=== PATIENT | male | born 1995 | race Caucasian/White ===

== ENCOUNTER 2017-12-14 15:24 | Emergency (ER) | payer OTHER ==
[~2017-12-14] VITALS: Ht 162.6 cm; Wt 56.1 kg
[2017-12-14 15:32] VITALS: TEMP 36.6; Ht 162.6 cm; Wt 56.1 kg
--- NOTE | 2017-12-14 15:50 | EMERGENCY ROOM VISIT NOTE ---
History Report prepared by Lia: Osiris Landeros Under the Supervision of: Dr. Jonny Travis M.D. 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 Positive hematochezia. Negative SOB, chest pain, back pain, weakness, familial history of small obstructive bowel disease. He describes his pain as discomfort and states the pain is worse on his right side but occasionally travels to his lower left side. The patient states he has been drinking well water and notes it has been smelling off lately. The last time he went camping was over 1 month ago. He currently does not take any blood thinners, or use tobacco or drugs. He notes his mother had part of her small intestine removed due to diverticulitis. Source of History: patient Onset: 4 days captain waiter/waitress Position: abdomen Timing: intermittent Review of Systems See HPI for pertinent positives and negatives. A total of ten systems were reviewed and were otherwise negative. Past Medical & Surgical Medical Problems: (1) Stomach problems (2) Urinary problem in male Family History FH: cancer FHx: diabetes mellitus High blood pressure Social History Smoking Status: Never Smoker Alcohol Use: none Drug Use: none Housing Status: lives with family Current/Historical Medications Scheduled Dicyclomine Hcl (Bentyl), 10 MG PO TID Esomeprazole Magnesium (Nexium), 40 MG PO DAILY Allergies Uncoded Allergies: NKDA (Allergy, Mild, 02/29/08) Physical Exam Vital Signs Date Time Temp Pulse Resp B/P (MAP) Pulse Ox O2 Delivery O2 Flow Rate FiO2 12/14/17 17:28 91 18 102/61 100 12/14/17 16:35 100 12/14/17 16:22 116 21 97/69 100 Room Air 12/14/17 15:32 36.6 84 18 122/76 97 Room Air Physical Exam GENERAL: Awake, alert, well-appearing, NAD HENT: Normocephalic, atraumatic. EYES: Normal conjunctiva. Sclera non-icteric. PERRL. No anisocoria. NECK: Supple. No nuchal rigidity. FROM. No CVA TTP. RESPIRATORY: CTAB, no rhonchi, wheezing, crackles CARDIAC: RRR, no MRG ABDOMEN: Soft, NTND, BS+. Right upper, left upper, and left lower discomfort. No guarding, no rebound. Negative obturators. Negative psoas. : No hemorrhoids, no masses, no fissures. Hem occult negative. No gross blood MSK: No chest wall TTP, no LE edema NEURO: GCS 15, CN 2-12 intact, moves all 4s on command SKIN: No rash or jaundice noted. Medical Decision & Procedures ER Provider Diagnostic Interpretation: Radiology results as stated below per my review and radiologist interpretation: KUB HISTORY: Generalized abdominal pain. COMPARISON: None. FINDINGS: The bowel gas pattern is unremarkable. There are no dilated loops of small bowel to suggest an obstruction. No renal calculi. No ureteral calculi. No pneumoperitoneum or pneumatosis. IMPRESSION: No renal or ureteral stones. Electronically signed by: Reyes Gustafson M.D. 12/14/2017 4:30 PM Laboratory Results 12/14/17 16:26 Red Blood Count 5.80, Mean Corpuscular Volume 83.1, Mean Corpuscular Hemoglobin 30.2, Mean Corpuscular Hemoglobin Concent 36.3, Mean Platelet Volume 9.7, Neutrophils (%) (Auto) 45.5, Lymphocytes (%) (Auto) 46.0, Monocytes (%) (Auto) 6.4, Eosinophils (%) (Auto) 1.5, Basophils (%) (Auto) 0.4, Neutrophils # (Auto) 2.48, Lymphocytes # (Auto) 2.50, Monocytes # (Auto) 0.35, Eosinophils # (Auto) 0.08, Basophils # (Auto) 0.02 12/14/17 16:26 Test 12/14/17 16:00 12/14/17 16:26 Urine Color YELLOW Urine Appearance CLEAR (CLEAR) Urine pH 6.5 (4.5-7.5) Urine Specific [place] 1.027 (1.000-1.030) Urine Protein NEG (NEG) Urine Glucose (UA) NEG (NEG) Urine Ketones NEG (NEG) Urine Occult Blood NEG (NEG) Urine Nitrite NEG (NEG) Urine Bilirubin NEG (NEG) Urine Urobilinogen NEG (NEG) Urine Leukocyte Esterase NEG (NEG) White Blood Count 5.44 K/uL (4.8-10.8) Red Blood Count 5.80 M/uL (4.7-6.1) Hemoglobin 17.5 g/dL (14.0-18.0) Hematocrit 48.2 % (42-52) Mean Corpuscular Volume 83.1 fL (80-100) Mean Corpuscular Hemoglobin 30.2 pg (25-34) Mean Corpuscular Hemoglobin Concent 36.3 g/dl (32-36) Platelet Count 270 K/uL (130-400) Mean Platelet Volume 9.7 fL (7.4-10.4) Neutrophils (%) (Auto) 45.5 % Lymphocytes (%) (Auto) 46.0 % Monocytes (%) (Auto) 6.4 % Eosinophils (%) (Auto) 1.5 % Basophils (%) (Auto) 0.4 % Neutrophils # (Auto) 2.48 K/uL (1.4-6.5) Lymphocytes # (Auto) 2.50 K/uL (1.2-3.4) Monocytes # (Auto) 0.35 K/uL (0.11-0.59) Eosinophils # (Auto) 0.08 K/uL (0-0.5) Basophils # (Auto) 0.02 K/uL (0-0.2) RDW Standard Deviation 37.6 fL (36.4-46.3) RDW Coefficient of Variation 12.6 % (11.5-14.5) Immature Granulocyte % (Auto) 0.2 % Immature Granulocyte # (Auto) 0.01 K/uL (0.00-0.02) Prothrombin Time 11.1 SECONDS (9.0-12.0) Prothromb Time International Ratio 1.1 (0.9-1.1) Activated Partial Thromboplast Time 28.6 SECONDS (21.0-31.0) Partial Thromboplastin Ratio 1.1 Anion Gap 7.0 mmol/L (3-11) Est Creatinine Clear Calc Drug Dose 93.5 ml/min Estimated GFR () 125.0 Estimated GFR (Non- 107.9 BUN/Creatinine Ratio 11.3 (10-20) Calcium Level 9.0 mg/dl (8.5-10.1) Total Bilirubin 0.8 mg/dl (0.2-1) Direct Bilirubin 0.2 mg/dl (0-0.2) Aspartate Amino Transf (AST/SGOT) 17 U/L (15-37) Alanine Aminotransferase (ALT/SGPT) 20 U/L (12-78) Alkaline Phosphatase 60 U/L (45-117) Total Protein 8.2 gm/dl (6.4-8.2) Albumin 4.4 gm/dl (3.4-5.0) Lipase 147 U/L (73-393) Laboratory results reviewed by me Medications Administered Medications (Trade) Dose Ordered Sig/Scotty Route Start Time Stop Time Status Last Admin Dose Admin Sodium Chloride 500 ml @ 999 mls/hr Q31M STAT IV 12/14/17 16:48 12/14/17 17:18 DC 12/14/17 16:56 999 MLS/HR ED Course 1537: The patient was evaluated in room A11. A complete history and physical exam was performed. 1640: I performed a rectal exam at this time. It showed no hemorrhoids, no masses, no fissures. Hem occult negative. No gross blood 1709: I reevaluated the patient. Discussed results and discharge instructions: He verbalized understanding and agreement. The patient is ready for discharge. 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 Positive hematochezia. Negative SOB, chest pain, back pain, weakness, familial history of small obstructive bowel disease. Nursing notes reviewed. Ancillary studies and prior records reviewed. Differential diagnosis: Etiologies such as appendicitis, diverticulitis, PUD, biliary pathology, UTI, pancreatitis, obstruction, mesenteric ischemia, aortic pathology, infections, inflammatory bowel disease, renal colic, diverticulosis, AVM, coagulopathy, colitis, inflammatory bowel disease, malignancy, Radha-Olivares tear, esophagitis , peptic ulcer disease, variceal bleed, gastritis, epistaxis, fissure, hemorrhoids, as well as others were entertained. Patient was seen and evaluated the bedside. Patient has complained of some hematochezia. Patient states that the volume is somewhat increased as it has been on the stool and occasionally when he wipes. Patient denies any trauma. Patient is not taking blood thinning medications. Patient denies any prior history of IBD, trauma, alcohol or tobacco use. Patient did state that he noticed the change in the smell and quality of his well water. No recent antibiotics or travel. Patient did have blood work completed and was given some IV fluids. The patient was intermittently tachycardic but I believe this is due to stress as the patient has never been to the ER to have an IV placed or have a rectal exam completed before. The patient's rectal exam did not show any gross blood, melenic stool, and was Hemoccult negative. Patient did show me some photos which showed that there was some blood in the stool. Patient denies eating any beats, iron supplements, or a lot of red meat. Patient's blood counts were normal. Patient had normal H&H, platelet count, and coagulation studies. Patient's abdominal pain did improve. Given the patient's lack of comorbidities I do not believe that the patient requires a CT scan at this time. Patient was told this may be a self-limiting disease. Patient was unable to give us a stool sample at this time to send him for further study. The patient does have a follow-up with his PCP on Monday and told him that he may need a referral to a lead nuclear medicine technologist for possible endoscopy or colonoscopy. Patient denies any family history of colon cancer. Patient has not had any unintended weight loss. The patient was informed to try to take a PPI and to consider more bland diet. Patient was also given some Bentyl for home. Patient was given strict follow-up, discharge, and return precautions. All questions were answered. Patient was deemed suitable for outpatient follow-up at this time. Patient agreed with the plan of care and was safely discharged home. Medication Reconcilliation Current Medication List: was personally reviewed by me Blood Pressure Screening Patient's blood pressure: Normal blood pressure Blood pressure disposition: Did not require urgent referral Impression Primary Impression: Rectal bleeding Additional Impression: Abdominal pain Scribe Attestation The scribe's documentation has been prepared under my direction and personally reviewed by me in its entirety. I confirm that the note above accurately reflects all work, treatment, procedures, and medical decision making performed by me. Departure Information Dispostion Home / Self-Care Prescriptions Esomeprazole Magnesium (NEXIUM) 40 Mg Cap 40 MG PO DAILY for 30 Days, #30 CAP Prov: Jonny Travis M.D. 12/14/17 Dicyclomine Hcl (BENTYL) 10 Mg Cap 10 MG PO TID for 7 Days, #21 CAP Prov: Jonny Travis M.D. 12/14/17 Referrals No Doctor, Assigned (PCP) John Bailey III, M.D. Forms HOME CARE DOCUMENTATION FORM, IMPORTANT VISIT INFORMATION Patient Instructions Bleeding Rectal, My Cm Pixsta Additional Instructions Please return to the emergency department if you have worsening or recurrent symptoms not amenable to at-home treatment. Please call for a follow-up appointment with her primary care physician. Please take your medications as prescribed. If you have other concerns and/or complaints please feel free to also call your primary care physician's office or return the ED for further evaluation, management, and treatment. To help with your reflux type symptoms please consider smaller more frequent meals. Please do not lay down after eating. Consider avoiding spicy, citrus, peppermint, chocolate. Consider taking a PPI like Nexium 20 mg daily or an antihistamine like Pepcid 20 mg twice daily. You have been examined and treated today on an emergency basis only. This is not a substitute for, or an effort to provide, complete comprehensive medical care. It is impossible to recognize and treat all injuries or illnesses in a single emergency department visit. It is therefore important that you follow up closely with [facility], your PCP, and/or your specialist(s). Call as soon as possible for an appointment. Thank you for your time and consideration. I look forward to speaking with you again soon. Please don't hesitate to call us if you have any questions. Problem Qualifiers Additional Impression: Abdominal pain Abdominal location: generalized Qualified Codes: R10.84 - Generalized abdominal pain
--- NOTE | 2017-12-14 16:31 | DIAGNOSTIC IMAGING REPORT ---
KUB HISTORY: Generalized abdominal pain. COMPARISON: None. FINDINGS: The bowel gas pattern is unremarkable. There are no dilated loops of small bowel to suggest an obstruction. No renal calculi. No ureteral calculi. No pneumoperitoneum or pneumatosis. IMPRESSION: No renal or ureteral stones. Electronically signed by: Reyes Gustafson M.D. 12/14/2017 4:30 PM Dictated Date/Time: 12/14/2017 4:29 PM
[2017-12-14 16:35] LABS: BASO % 0.4 %; BASO ABS # 0.02 K/uL (0-0.2); EOS % 1.5 %; EOS ABS # 0.08 K/uL (0-0.5); HEMATOCRIT 48.2 % (42-52); HEMOGLOBIN 17.5 g/dL (14.0-18.0); IG# 0.01 K/uL (0.00-0.02); MEAN CELL VOLUME 83.1 fL (80-100); MEAN CORPUSCULAR HEMOGLOBIN 30.2 pg (25-34); MEAN CORPUSCULAR HGB CONC 36.3 g/dl (32-36); MEAN PLATELET VOLUME 9.7 fL (7.4-10.4); MONO % 6.4 %; MONO ABS # 0.35 K/uL (0.11-0.59); NEUT % 45.5 %; NEUT ABS # 2.48 K/uL (1.4-6.5); PLATELET COUNT 270 K/uL (130-400); RED CELL DISTRIBUTION WIDTH CV 12.6 % (11.5-14.5); RED CELL DISTRIBUTION WIDTH SD 37.6 fL (36.4-46.3); WHITE BLOOD COUNT 5.44 K/uL (4.8-10.8)
[2017-12-14 16:44] LABS: INR 1.1 (0.9-1.1); PTT PATIENT 28.6 SECONDS (21.0-31.0)
[2017-12-14] MEDS ORDERED: SODIUM CHLORIDE 0.9% 500ML 500 ML IV STA (16:48)
[2017-12-14 16:56] LABS: ALBUMIN 4.4 gm/dl (3.4-5.0); POTASSIUM 3.5 mmol/L (3.5-5.1); TOTAL PROTEIN 8.2 gm/dl (6.4-8.2)
[2017-12-14] MEDS ORDERED: DICY10CA55 PO (17:20)
[2017-12-14] MEDS ORDERED: NXM/40 PO (17:20)
[2017-12-14 17:28] VITALS: BP 102/61; PULSE 91; O2SAT 100
--- NOTE | 2017-12-14 18:51 | Pharmacy Progress Note ---
ED Pharmacist Progress Note Date of Service: December 14, 2017. received a message from [employer] stating esomeprazole was not covered by patient 's insurance. Discussed with Dr. Travis and this was switched to omeprazole 20mg instead.
== END 2017-12-14 17:28 | disposition home or self-care (01) ==
LOC: C.EDB 15:25 → C.EDA 17:28
DX: R10.84 Generalized abdominal pain (principal); K62.5 Hemorrhage of anus and rectum; Z80.9 Family history of malignant neoplasm, unspecified; Z83.3 Family history of diabetes mellitus; Z82.49 Family history of ischemic heart disease and other diseases of the circulatory system; Z79.899 Other long term (current) drug therapy